=== PATIENT | female | born 1955 | race Caucasian/White ===

== ENCOUNTER 2021-10-26 15:06 | Inpatient (IN) | payer BC ==
[2021-10-26 17:13] VITALS: BMI 23.6
[2021-10-26] MEDS ORDERED: ONDANSETRON *ODT* 4 MG TABLET SL PRN (18:15)
[2021-10-26] MEDS ORDERED: MAGNESIUM HYDROX 2400MG/30ML ORAL SUSPENSION 30 ML CUP PO PRN (18:15)
[2021-10-26] MEDS ORDERED: MELATONIN 5 MG TABLETS PO PRN (18:15)
[2021-10-26] MEDS ORDERED: MAG HYDROX/AL HYDROX/SIMETH 30 ML UNIT-DOSE CUP PO PRN (18:15)
[2021-10-26] MEDS ORDERED: BISMUTH SUBSALICYLATE 524 MG/30 ML PO PRN (18:15)
[2021-10-26] MEDS ORDERED: ACETAMINOPHEN 325 MG TABLET (FP) PO PRN ×2 (18:15)
[2021-10-26] MEDS ORDERED: MAGNESIUM CITRATE 300 ML BOTTLE PO PRN (18:15)
[2021-10-26] MEDS ORDERED: MENTHOL/PHENOL 1 EACH UD MM PRN (18:15)
[2021-10-26] MEDS ORDERED: diazePAM 5 MG TABLET ONE (18:56)
[2021-10-26] MEDS: diazePAM 5 MG TABLET PO PRN (18:58)
[2021-10-26] MEDS ORDERED: diazePAM 5 MG TABLET PO SCH (23:00)
[2021-10-26] MEDS: THIAMINE HCL 100 MG TABLET (FP) PO SCH (23:00)
[2021-10-26] MEDS: METHOCARBAMOL 500 MG TABLET PO PRN (23:00)
[2021-10-26] MEDS: diazePAM 5 MG TABLET PO SCH (23:00)
[2021-10-27] MEDS: diazePAM 5 MG TABLET PO PRN ×2 (00:57→13:50)
[2021-10-27] MEDS ORDERED: hydrOXYzine PAMOATE 25 MG CAPSULE (FP) PO ONE (02:12)
[2021-10-27] MEDS: diazePAM 5 MG TABLET PO SCH ×4 (05:19→22:26)
[2021-10-27 09:35] LABS: HEMATOCRIT 38.5 % (32.4-45.2); HEMOGLOBIN 13.1 GM/dL (10.7-15.3); MCH 33.3 pg (25.7-33.7); MCHC 34.1 g/dl (32.0-36.0); MEAN CELL VOLUME 97.4 fl (80-96); PLATELET COUNT 394 10^3/uL (134-434); RBC 3.95 M/mm3 (3.60-5.2); RDW 15.1 % (11.6-15.6); WHITE BLOOD COUNT 8.6 K/mm3 (4.0-10.0)
[2021-10-27 10:14] LABS: BLOOD UREA NITROGEN 11.6 mg/dL (7-18)
[2021-10-27 10:15] LABS: CALCIUM 9.5 mg/dL (8.5-10.1)
[2021-10-27 10:16] LABS: ALBUMIN 4.5 g/dl (3.4-5.0); CREATININE 0.7 mg/dL (0.55-1.3)
[2021-10-27 10:21] LABS: TOT PROT 7.8 g/dl (6.4-8.2)
[2021-10-27] MEDS: METHOCARBAMOL 500 MG TABLET PO PRN (10:26)
[2021-10-27] MEDS: PRENATAL VITAMINS W/ FOLIC ACID TABLET (FP) PO SCH (10:26)
[2021-10-27 10:50] LABS: BILIRUBIN,TOTAL 1.3 mg/dL (0.2-1)
[2021-10-27] MEDS: hydrOXYzine PAMOATE 25 MG CAPSULE (FP) PO PRN ×3 (11:48→22:12)
[2021-10-27] MEDS ORDERED: LEVOTHYROXINE NA 25 MCG TABLET (FP) PO ONE (13:34)
[2021-10-27] MEDS ORDERED: LEVOTHYROXINE NA 25 MCG TABLET (FP) PO SCH (13:45)
[2021-10-27] MEDS: amLODIPine BESYLATE 5 MG TABLET (FP) PO SCH (14:54)
[2021-10-27] MEDS ORDERED: METOPROLOL TARTRATE 25 MG TABLET (FP) PO ONE (18:36)
[2021-10-27] MEDS ORDERED: SUVOREXANT 10 MG TABLET PO PRN (22:00)
[2021-10-27] MEDS: THIAMINE HCL 100 MG TABLET (FP) PO SCH (22:12)
[2021-10-28] MEDS: diazePAM 5 MG TABLET PO SCH ×3 (06:06→22:25)
[2021-10-28] MEDS: hydrOXYzine PAMOATE 25 MG CAPSULE (FP) PO PRN ×2 (06:07→12:06)
[2021-10-28] MEDS: LEVOTHYROXINE NA 25 MCG TABLET (FP) PO SCH (06:07)
[2021-10-28] MEDS: PRENATAL VITAMINS W/ FOLIC ACID TABLET (FP) PO SCH (10:01)
[2021-10-28] MEDS: diazePAM 5 MG TABLET PO PRN ×2 (10:01→18:23)
[2021-10-28] MEDS: amLODIPine BESYLATE 5 MG TABLET (FP) PO SCH (10:02)
[2021-10-28] MEDS: METHOCARBAMOL 500 MG TABLET PO PRN (10:02)
[2021-10-28] MEDS: THIAMINE HCL 100 MG TABLET (FP) PO SCH (22:25)
[2021-10-28] MEDS: SUVOREXANT 15 MG TABLET PO PRN (22:25)
[2021-10-29] MEDS: diazePAM 5 MG TABLET PO PRN ×2 (02:02→14:21)
[2021-10-29] MEDS: LEVOTHYROXINE NA 25 MCG TABLET (FP) PO SCH (06:06)
[2021-10-29] MEDS: diazePAM 5 MG TABLET PO SCH ×2 (06:06→18:55)
[2021-10-29 10:46] LABS: ALBUMIN 4.2 g/dl (3.4-5.0)
[2021-10-29 10:49] LABS: BILIRUBIN,TOTAL 1.4 mg/dL (0.2-1); TOT PROT 7.6 g/dl (6.4-8.2)
[2021-10-29 10:50] LABS: BILIRUBIN,DIRECT 0.4 mg/dL (0.0-0.2)
[2021-10-29] MEDS: PRENATAL VITAMINS W/ FOLIC ACID TABLET (FP) PO SCH (11:03)
[2021-10-29] MEDS: amLODIPine BESYLATE 10 MG TABLET (FP) PO SCH (11:03)
[2021-10-29] MEDS: hydrOXYzine PAMOATE 25 MG CAPSULE (FP) PO PRN ×3 (11:07→22:18)
[2021-10-29] MEDS: METHOCARBAMOL 500 MG TABLET PO PRN ×2 (18:56→22:18)
[2021-10-29] MEDS: SUVOREXANT 15 MG TABLET PO PRN (22:18)
[2021-10-29] MEDS: THIAMINE HCL 100 MG TABLET (FP) PO SCH (22:18)
[2021-10-30] MEDS ORDERED: diazePAM 5 MG TABLET PO ONE (06:00)
[2021-10-30] MEDS: hydrOXYzine PAMOATE 25 MG CAPSULE (FP) PO PRN ×2 (07:37→10:58)
[2021-10-30] MEDS: LEVOTHYROXINE NA 25 MCG TABLET (FP) PO SCH (07:37)
[2021-10-30] MEDS: PRENATAL VITAMINS W/ FOLIC ACID TABLET (FP) PO SCH (10:56)
[2021-10-30] MEDS: amLODIPine BESYLATE 10 MG TABLET (FP) PO SCH (10:56)
[2021-10-30] MEDS: METHOCARBAMOL 500 MG TABLET PO PRN (10:58)
[2021-10-30 15:42] VITALS: BP 124/72; PULSE 94; TEMP 97.9
== END 2021-10-30 16:03 | disposition other institution (70) | DRG 897 ==
LOC: YASAS 15:06 → Y6N 20:22
PROVIDERS: ADMIT Allergy & Immunology; ATTEND Allergy & Immunology
PROC: HZ2ZZZZ Detoxification Services for Substance Abuse Treatment (ICD-10-PCS; principal; 2021-10-26)
DX: F10.230 Alcohol dependence with withdrawal, uncomplicated (principal); F13.230 Sedative, hypnotic or anxiolytic dependence with withdrawal, uncomplicated; F12.10 Cannabis abuse, uncomplicated; F10.282 Alcohol dependence with alcohol-induced sleep disorder; F10.280 Alcohol dependence with alcohol-induced anxiety disorder; F10.24 Alcohol dependence with alcohol-induced mood disorder; F31.9 Bipolar disorder, unspecified; F41.9 Anxiety disorder, unspecified; I10 Essential (primary) hypertension; E03.9 Hypothyroidism, unspecified; M54.50 Low back pain, unspecified; G89.29 Other chronic pain; Z85.3 Personal history of malignant neoplasm of breast; Z87.11 Personal history of peptic ulcer disease; Z91.410 Personal history of adult physical and sexual abuse
CPT/HCPCS: 36415; 80053; 80076; 82962; 85027; 86780; C9803; U0003; U0005